=== PATIENT | female | born 1980 | race Caucasian/White ===

== ENCOUNTER → 2017-03-16 | Outpatient (CLI) | payer OTHER ==
[~2017-03-16] MED LIST: STATES NO HOME MEDS
--- NOTE | 2017-03-16 14:30 | MAMMOGRAPHY REPORT ---
BILATERAL DIGITAL DIAGNOSTIC MAMMOGRAM TOMOSYNTHESIS WITH CAD AND TARGETED LEFT ULTRASOUND: 03/16/2017 CLINICAL HISTORY: 36-year-old woman presents for diagnostic evaluation. Initially she noticed the le ft inferior breast near the inframammary fold felt different compared to the right. She reports her doctor felt an abnormality in the 7:00 left breast. No skin erythema, nipple discharge or family his tory of breast cancer. TECHNIQUE: Bilateral breast tomosynthesis in addition to standard 2D mammography was performed. Curre nt study was also evaluated with a Computer Aided Detection (CAD) system. COMPARISON: No prior exams were available for comparison. BREAST COMPOSITION: There are scattered areas of fibroglandular density in both breasts. FINDINGS: A triangular skin palpable marker overlies the lower inner quadrant of the left breast. No suspicious mass, architectural distortion or cluster of microcalcifications is seen bilaterally. Targeted ultrasound was performed in the 6:00 and 7:00 axes of the left breast to evaluate both the n odularity described by the patient and the lump identified by the patient's physician. Throughout th e 6:00 and 7:00 axes extending to the inframammary fold, normal fibrolinear tissue is seen without a discrete solid or cystic mass. IMPRESSION: ACR BI-RADS CATEGORY 2: BENIGN, TARGETED ULTRASOUND ACR BI-RADS CATEGORY 2: BENIGN There is no mammographic or targeted sonographic evidence of malignancy. No suspicious mammographic or sonographic abnormality to explain the asymmetric nodularity along the inferior left breast. Ther efore, clinical follow-up is recommended, as biopsy of a clinically suspicious mass should not be pre cluded by negative imaging. Otherwise, a 3 year screening mammogram is recommended. Approximately 10% of breast cancers are not detected with mammography. A negative mammographic report should not delay biopsy if a clinically suggestive mass is present. Mesha Ott M.D. ay/:03/16/2017 09:19:43 Armature Winder: Tessa PARK)Liza), [facility] letter sent: Normal 1/2 BI-RADS Code: ACR BI-RADS Category 2: Benign Ultrasound BI-RADS: ACR BI-RADS Category 2: Benign
== END | disposition home or self-care (01) ==
LOC: C.MAMM 08:45
PROVIDERS: ATTEND Physician Assistant
DX: Z87.898 Personal history of other specified conditions (principal)

== ENCOUNTER → 2017-03-23 | Outpatient (CLI) | payer OTHER | END | disposition home or self-care (01) | LOC: C.PAPS 11:14 | PROVIDERS: ATTEND Physician Assistant | DX: Z01.419 Encounter for gynecological examination (general) (routine) without abnormal findings (principal) ==